=== PATIENT | male | born 1945 | race Caucasian/White ===

== ENCOUNTER 2018-03-30 19:41 | Emergency (ER) | payer OTHER ==
[~2018-03-30] VITALS: Ht 172.7 cm; Wt 81.2 kg
[2018-03-30] MEDS ORDERED: ALLOPURINOL 10100 M1 (19:54)
[2018-03-30] MEDS ORDERED: HYDROCHLOROTHIA25 M2 (19:55)
[2018-03-30] MEDS ORDERED: LOTREL 5-10 MG1 EACH (19:55)
[2018-03-30] MEDS ORDERED: LIPITOR10 MG (19:55)
[2018-03-30] MEDS ORDERED: FENOFIBRATE160 MG (19:56)
[2018-03-30] MEDS ORDERED: BACTRIM DS TAB1 EACH PO (20:09)
[2018-03-30] MEDS ORDERED: KEFLEX500 M1 PO (20:09)
[2018-03-30 20:26] VITALS: BP 141/71
== END 2018-03-30 20:27 | disposition home or self-care (01) ==
LOC: M.ERS 19:41
DX: L03.031 Cellulitis of right toe (principal); I10 Essential (primary) hypertension; E78.00 Pure hypercholesterolemia, unspecified; M10.9 Gout, unspecified

== ENCOUNTER → 2018-08-09 | Outpatient (CLI) | payer OTHER ==
[~2018-08-09] MED LIST: ALLOPURINOL 10100 M1; BACTRIM DS TAB1 EACH PO; FENOFIBRATE160 MG; HYDROCHLOROTHIA25 M2; KEFLEX500 M1 PO; LIPITOR10 MG; LOTREL 5-10 MG1 EACH
== END ==
LOC: M.MRI 08:11
DX: M86.8X7 Other osteomyelitis, ankle and foot (principal); M00.9 Pyogenic arthritis, unspecified

== ENCOUNTER → 2018-10-08 | Outpatient (CLI) | payer OTHER | LOC: M.LAB 05:25 | DX: Z01.812 Encounter for preprocedural laboratory examination (principal) ==